=== PATIENT | female | born 1950 | race African-American/Black ===

== ENCOUNTER → 2018-10-10 18:45 | Outpatient (CLI) | payer MEDICARE | END | disposition home or self-care (01) | LOC: D.MAMMO 11:45 | DX: Z12.31 Encounter for screening mammogram for malignant neoplasm of breast (principal) ==

== ENCOUNTER 2021-01-15 17:29 | Outpatient (CLI) | payer SELFPAY | END 2021-01-15 23:59 | disposition home or self-care (01) | LOC: D.MAMMO 17:29 | PROVIDERS: ATTEND Nurse Practitioner | DX: Z12.31 Encounter for screening mammogram for malignant neoplasm of breast (principal) ==